=== PATIENT | male | born 1990 | race African-American/Black ===

== ENCOUNTER 2021-01-30 19:27 | Emergency (ER) | payer SELFPAY ==
[2021-01-30 20:09] VITALS: BP 105/73; PULSE 102; RESP 18; TEMP 36.7; O2SAT 97; BMI 20.1
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
[2021-01-30 21:00] VITALS: BP 120/63; PULSE 90; RESP 18; TEMP 36.7; O2SAT 97
[2021-01-30] MEDS: amoxicillin-clav 875-125 mg Tablet 1 TAB PO (21:00)
--- NOTE | 2021-01-31 13:58 | DCPLANNER ---
Addendum entered by Mervat Naylor 02/20/21 10:16: Clinic called protective services case worker stating that physicians at ortho were not going to see patient at this time. dispatch manager attempted to call patient to see if he would want to be referred to wound clinic. Original Note: dispatch manager had message to schedule a follow up appointment for patient with ortho. dispatch manager called the ortho clinic, spoke with Lisandra, gave clinic patients information. dispatch manager was told that patients information would be printed and reviewed. Clinic will call patient with appointment information.
== END 2021-01-30 21:08 | disposition home or self-care (01) ==
PROVIDERS: Emergency Provider Emergency Medicine
DX: S61.451A Open bite of right hand, initial encounter (principal); Y04.1XXA Assault by human bite, initial encounter
CPT/HCPCS: 73130; 99283